=== PATIENT | male | born 1980 | race Caucasian/White ===

== ENCOUNTER 2016-04-12 21:02 | Emergency (ER) | payer MEDICAID ==
[~2016-04-12] VITALS: Ht 165.1 cm; Wt 65.5 kg
[~2016-04-12 21:02] MED LIST: FAMO20TA18 PO; HYDR-762 PO; IBUP-1542 PO; LORA-401 PO; SUCR1ORA PO
[2016-04-12 21:05] VITALS: Ht 165.1 cm; Wt 65.5 kg
[2016-04-12] MEDS ORDERED: BACTDS PO (23:21)
[2016-04-12] MEDS ORDERED: CEPH-443 PO (23:22)
[2016-04-12] MEDS ORDERED: IBUP-1542 PO (23:22)
--- NOTE | 2016-04-13 01:55 | ERD ---
ER Documentation Chief Complaint Date/Time DATE: 04/13/16 TIME: 01:46 Chief Complaint R leg pain/swelling after trimming his toe nails yesterday HPI This is a 35-year-old male presents to the ER with right big toe pain that radiates up to his [place] and thigh. Patient states that his nail was ingrown in that he cut it yesterday, he states he still has pain in his nail. She denies any fevers or chills. Denies any leg pain or swelling. He denies any chest pain or shortness of breath. Has not trying to soak his foot in warm water however it has not worked. ROS 12 point review of systems was done, all negative except per HPI.. Medications Home Meds Active Scripts Ibuprofen* (Motrin*) 600 Mg Tab, 600 MG PO Q6, #30 TAB Prov:CLIVE GARAY 04/12/16 Cephalexin* (Keflex*) 500 Mg Capsule, 500 MG PO QID for 5 Days, CAP Prov:CLIVE GARAY 04/12/16 Sulfamethoxazole-Trimethoprim* (Bactrim* DS) 800-160 Mg Tab, 1 TAB PO BID for 5 Days, TAB Prov:CLIVE GARAY 04/12/16 Ibuprofen* (Motrin*) 600 Mg Tab, 600 MG PO Q6, #30 TAB Prov:AWILDA PRINCE PA-C 08/22/15 Reported Medications Hydrocodone Bit-Acetaminophen* ([place]*) 1 Tab Tablet, 1 TAB PO Q6 PRN 03/28/12 Famotidine* (Famotidine*) 20 Mg Tablet, 20 MG PO DAILY 03/28/12 Lorazepam* (Ativan*) 1 Mg Tablet, 1 MG PO TID PRN 03/28/12 Sucralfate* (Carafate*) 1 G/10 Ml Oral.susp, 10 ML PO QID 03/28/12 Allergies Allergies: Coded Allergies: No Known Allergy (Unverified , 08/22/15) PMhx/Soc History of Surgery: No Anesthesia Reaction: No Hx Neurological Disorder: No Hx Respiratory Disorders: No Hx Cardiac Disorders: Yes (HTN) Hx Psychiatric Problems: No Hx Miscellaneous Medical Probl: No Hx Alcohol Use: No Hx Substance Use: No Hx Tobacco Use: No Physical Exam Vitals Vital Signs Date Time Temp Pulse Resp B/P Pulse Ox O2 Delivery O2 Flow Rate FiO2 04/12/16 21:05 98.6 85 18 129/81 99 Physical Exam Const: [] Head: Atraumatic Eyes: Normal Conjunctiva Resp: Clear to auscultation bilaterally Cardio: Regular rate and rhythm, no murmurs Abd: Soft, non tender, non distended. Normal bowel sounds Ext: right big toe slight swelling and redness. no calf swelling or redness. Neur: Awake and alert Psych: Normal Mood and Affect Procedures/MDM This is a 35 y/o male that presents to the ER with right big toe pain after attempting to cut his ingrown toenail. Patient does appear to have a slight infection of the site. He will be sent home with Keflex and with Bactrim. He was advised to soak his foot in epson salt and warm water. Patient needs to f/u with his PCP within 1-2 days and see a automatic brine mixer operator for possible toenail removal. Patient needs to return to ER if symptoms worsen. Plan was discussed with the patient, he understands and agrees with the plan. Departure Diagnosis: Primary Impression: Ingrown toenail Condition: Stable Patient Instructions: Understanding Ingrown Toenails, Ingrown Toenail, Infected (Abx Only) Additional Instructions: Llame al doctor NAREN y mukul max HAO PARA DENTRO DE 1-2 RITCHIE.Dgale a la secretaria que nosotros le instruimos hacer esta hao.Avise o llame si lagunas condicin se empeora antes de la hao. Regresa aqui si peor o no mejor. CLIVE GARAY Apr 13, 2016 01:55
== END 2016-04-13 00:15 | disposition home or self-care (01) ==
LOC: FTE 21:02
DX: L60.0 Ingrowing nail (principal); I10 Essential (primary) hypertension
CPT/HCPCS: 99284

== ENCOUNTER 2016-04-20 15:40 | Emergency (ER) | payer MEDICAID ==
[~2016-04-20] VITALS: Ht 170.2 cm; Wt 75.0 kg
[~2016-04-20 15:40] MED LIST changes: +BACTDS PO; +CEPH-443 PO
[2016-04-20 15:44] VITALS: Ht 170.2 cm; Wt 75.0 kg
--- NOTE | 2016-04-20 21:16 | RADRPT ---
PROCEDURE: CT Head without contrast. CLINICAL INDICATION: Numbness and JOSE in the right upper and lower extremity. Headaches. TECHNIQUE: The study was performed utilizing a GE 64-slice multidetector CT scanner. Direct spiral axial CT images of the brain were obtained from the vertex to the skull base without contrast. The CTDI vol is 43.38 80 mGy and the DLP is 720.23 mGy-cm. The images were reviewed on a PACS workstati on. COMPARISON: No prior studies are available for comparison. FINDINGS: The ventricles and cortical sulci are within normal limits. The hickman-white matter differentiation i s maintained. No intra or extra-axial fluid collection or mass effect or shift in the midline struc tures is seen. The visualized paranasal sinuses, mastoid air cells, orbits, and calvarium are unrem arkable. IMPRESSION: Unremarkable CT of the head without contrast. RPTAT: HPNM Physician Nicole Date Time Electronically viewed and signed by Physician Nicole on 04/20/2016 21:16 /
[2016-04-20 22:26] LABS: ALBUMIN 4.3 g/dl (3.3-4.9); BASOPHILS % 0.4 % (0.0-2.0); EOSINOPHILS # 0.1 10^3/ul (0.0-0.5); HEMATOCRIT 44.6 % (42.0-52.0); HEMOGLOBIN 15.3 g/dl (14.0-18.0); LYMPHOCYTES # 3.2 10^3/ul (0.8-2.9); LYMPHOCYTES % 40.7 % (15.0-51.0); MEAN CORPUSCULAR HEMOGLOBIN 31.1 pg (29.0-33.0); MEAN CORPUSCULAR HGB CONC 34.3 g/dl (32.0-37.0); MEAN CORPUSCULAR VOLUME 90.5 fl (82.0-101.0); MEAN PLATELET VOLUME 8.8 fl (7.4-10.4); MONOCYTE # 0.5 10^3/ul (0.3-0.9); NEUTROPHIL # 4.1 10^3/ul (1.6-7.5); NEUTROPHILS % 51.9 % (39.0-77.0); PLATELET COUNT 266 10^3/UL (140-440); RED BLOOD COUNT 4.92 10^6/ul (4.70-6.10); RED CELL DISTRIBUTION WIDTH 13.2 % (11.5-14.5); UNCORRECTED WBC 7.9 10^3/ul (4.8-10.8); WHITE BLOOD COUNT 7.9 10^3/ul (4.8-10.8)
[2016-04-20 22:27] LABS: CHLORIDE 102 mmol/L (97-110); SODIUM 143 mmol/L (135-144)
[2016-04-20 22:28] LABS: CONDITION 1
[2016-04-20 22:29] LABS: ALBUMIN/GLOBULIN RATIO 1.16; ALKALINE PHOSPHATASE 75 IU/L (42-121); ANION GAP 18 (8-16); ASPARTATE AMINO TRANSFERASE 25 IU/L (15-46); BLOOD UREA NITROGEN 22 mg/dl (7-20); CARBON DIOXIDE 27 mmol/L (21-31); CREATININE 1.03 mg/dl (0.61-1.24)
[2016-04-20 22:30] LABS: ALANINE AMINOTRANSFERASE 35 IU/L (13-69); CALCIUM 9.2 mg/dl (8.4-10.2); GLUCOSE 119 mg/dl (70-220)
[2016-04-20 22:46] LABS: TROPONIN-I < 0.012 ng/ml (0.00-0.12)
[2016-04-20 23:34] LABS: ADD UMIC NO; URINE BILIRUBIN (Dip) NEGATIVE (NEGATIVE); URINE BLOOD (Dip) NEGATIVE (NEGATIVE); URINE COLOR LT. YELLOW (YELLOW); URINE GLUCOSE (Dip) NEGATIVE (NEGATIVE); URINE KETONES (Dip) TRACE (NEGATIVE); URINE LEUKOCYTE ESTERASE (Dip) NEGATIVE (NEGATIVE); URINE NITRITE (Dip) NEGATIVE (NEGATIVE); URINE TOTAL PROTEIN (Dip) NEGATIVE (NEGATIVE); URINE UROBILINOGEN (Dip) 0.2 E.U./dL (0.1-1.0)
[2016-04-21 00:02] LABS: BARBITURATES Negative (NEGATIVE); BENZODIAZEPINES Negative (NEGATIVE); CANNABINOIDS Negative (NEGATIVE); COCAINE Negative (NEGATIVE); OPIATES Negative (NEGATIVE)
[2016-04-21] MEDS ORDERED: LORA1TAB PO (00:03)
--- NOTE | 2016-04-21 00:09 | ERD ---
ER Documentation Chief Complaint Date/Time DATE: 04/21/16 TIME: 00:06 Chief Complaint NUMBNESS/PA RT HAND SINCE LAST NIGHT. 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 States that he feels like his right arm and right leg are sleeping. Reports that he has a achy type of headache on the top of his head and rates it a 5 out of 10. States that he was here 1 week ago and was diagnosed with an ingrown toenail and finishes antibiotics. States that earlier today he felt like he was unable to open his hands for 2-3 minutes. States that his right hand was in a crypt position. Denies any chest pain, shortness of breath, abdominal pain, nausea, vomiting, dizziness, weakness, fever. Denies any recent traveling. Denies any leg swelling. Denies any family history of stroke. ROS All systems reviewed and are negative except as per history of present illness. Medications Home Meds Active Scripts Lorazepam* (Lorazepam*) 1 Mg Tablet, 1 MG PO Q8H Y for ANXIETY, #10 TAB Prov:DELTA TALBOT PA-C 04/21/16 Ibuprofen* (Motrin*) 600 Mg Tab, 600 MG PO Q6, #30 TAB Prov:CLIVE GARAY 04/12/16 Cephalexin* (Keflex*) 500 Mg Capsule, 500 MG PO QID for 5 Days, CAP Prov:CLIVE GARAY 04/12/16 Sulfamethoxazole-Trimethoprim* (Bactrim* DS) 800-160 Mg Tab, 1 TAB PO BID for 5 Days, TAB Prov:CLIVE GARAY 04/12/16 Ibuprofen* (Motrin*) 600 Mg Tab, 600 MG PO Q6, #30 TAB Prov:AWILDA PRINCE PA-C 08/22/15 Reported Medications Hydrocodone Bit-Acetaminophen* ([place]*) 1 Tab Tablet, 1 TAB PO Q6 PRN 03/28/12 Famotidine* (Famotidine*) 20 Mg Tablet, 20 MG PO DAILY 03/28/12 Lorazepam* (Ativan*) 1 Mg Tablet, 1 MG PO TID PRN 03/28/12 Sucralfate* (Carafate*) 1 G/10 Ml Oral.susp, 10 ML PO QID 03/28/12 Allergies Allergies: Coded Allergies: No Known Allergy (Unverified , 08/22/15) PMhx/Soc History of Surgery: No Anesthesia Reaction: No Hx Neurological Disorder: No Hx Respiratory Disorders: No Hx Cardiac Disorders: Yes (HTN) Hx Psychiatric Problems: No Hx Miscellaneous Medical Probl: Yes (GERD,Eczema) Hx Alcohol Use: No Hx Substance Use: No Hx Tobacco Use: No Physical Exam Vitals Vital Signs Date Time Temp Pulse Resp B/P Pulse Ox O2 Delivery O2 Flow Rate FiO2 04/20/16 15:44 97.5 72 18 124/76 97 Physical Exam Const: [id number], well-nourished. In no acute distress. Head: Atraumatic, normocephalic Eyes: Normal Conjunctiva without injection. No purulent discharge. PERRLA. EOMI ENT: Normal external ear. Ear canal without erythema. Tympanic membrane pearly hickman without effusion or bulging. Nasal canal clear with normal turbinates. Moist oropharynx without tonsillar exudates. Non-erythematous pharynx. Uvula midline. No drooling. No trismus. Neck: No cervical midline tenderness. Full range of motion. No meningismus. No cervical lymphadenopathy. No JVD. Resp: Clear to auscultation bilaterally. No wheezing, rhonchi, rales, or crackles. No accessory muscle use. No retractions. Cardio: Regular rate and rhythm. No murmurs, rubs or gallops. Abd: Soft, non tender, non distended. Normal bowel sounds. No palpable masses. No rebound tenderness. No guarding. Negative McBurney's Point. Negative Townsend's Sign. Skin: Normal skin turgor. No petechiae or rashes Back: No midline tenderness. No CVA tenderness. Ext: No cyanosis, or edema. Distal pulses intact bilaterally. Neur: Awake and alert. Normal gait. Normal coordination. Cranial Nerves II- VII intact. Normal finger to nose. Muscle strength 5/5. Sensation intact. Psych: Normal Mood and Affect Result Diagram: 04/20/16211804/20/162118 Results 24 hrs Laboratory Tests Test 04/20/16 21:19 04/20/16 22:26 Alanine Aminotransferase (ALT/SGPT) 35IU/L Albumin 4.3g/dl Albumin/Globulin Ratio 1.16 Alkaline Phosphatase 75IU/L Anion Gap 18 Aspartate Amino Transf (AST/SGOT) 25IU/L Basophils # 0.010^3/ul Basophils % 0.4% Blood Urea Nitrogen 22mg/dl Calcium Level 9.2mg/dl Carbon Dioxide Level 27mmol/L Chloride Level 102mmol/L Creatinine 1.03mg/dl Direct Bilirubin 0.00mg/dl Eosinophils # 0.110^3/ul Eosinophils % 1.0% Globulin 3.70g/dl Glucose Level 119mg/dl Hematocrit 44.6% Hemoglobin 15.3g/dl Indirect Bilirubin 0.0mg/dl Lipase 77U/L Lymphocytes # 3.210^3/ul Lymphocytes % 40.7% Mean Corpuscular Hemoglobin 31.1pg Mean Corpuscular Hemoglobin Concent 34.3g/dl Mean Corpuscular Volume 90.5fl Mean Platelet Volume 8.8fl Monocytes # 0.510^3/ul Monocytes % 6.0% Neutrophils # 4.110^3/ul Neutrophils % 51.9% Nucleated Red Blood Cells # 0.010^3/ul Nucleated Red Blood Cells % 0.0/100WBC Platelet Count 81211^3/UL Potassium Level 4.0mmol/L Red Blood Count 4.9210^6/ul Red Cell Distribution Width 13.2% Sodium Level 143mmol/L Total Bilirubin 0.0mg/dl Total Protein 8.0g/dl Troponin I < 0.012ng/ml White Blood Count 7.910^3/ul Urine Amphetamines Screen Negative Urine Barbiturates Negative Urine Benzodiazepines Screen Negative Urine Bilirubin NEGATIVE Urine Cannabinoids Negative Urine Clarity CLEAR Urine Cocaine Screen Negative Urine Color LT. YELLOW Urine Glucose NEGATIVE% Urine Hemoglobin NEGATIVE Urine Ketones TRACE Urine Leukocyte Esterase NEGATIVE Urine Nitrite NEGATIVE Urine Opiates Screen Negative Urine Specific [place] 1.025 Urine Total Protein NEGATIVE Urine Urobilinogen 0.2 E.U./dL Urine pH 6.0 Current Medications Medications (Trade) Dose Ordered Sig/Katherine Route PRN Reason Start Time Stop Time Status Last Admin Dose Admin Lorazepam (Ativan) 1 mg ONCE ONCE IV 04/21/16 00:30 04/21/16 00:31 Procedures/[facility] This is a 35-year-old male with a past medical history of diabetes and hypertension presents the ED complaining of right upper and lower extremity numbness and tingling associated with a headache. Patient is afebrile and nontoxic-appearing. Patient has normal vital signs. A CT of the brain without contrast, EKG, CBC, CMP, urinalysis, urine drug screen was ordered to further evaluate patient. CBC: No leukocytosis. No e/o of systemic infection. No e/o anemia. CMP: No e/o severe acidosis, alkalosis, renal failure, diabetic ketoacidosis, liver disease Lipase within normal limits. Urine: No leukocyte esterase, no nitrites, no hematuria. PROCEDURE: CT Head without contrast. CLINICAL INDICATION: Numbness and JOSE in the right upper and lower extremity. Headaches. TECHNIQUE: The study was performed utilizing a GE 64-slice multidetector CT scanner. Direct spiral axial CT images of the brain were obtained from the vertex to the skull base without contrast. The CTDI vol is 43.38 80 mGy and the DLP is 720.23 mGy-cm. The images were reviewed on a PACS workstation. COMPARISON: No prior studies are available for comparison. FINDINGS: The ventricles and cortical sulci are within normal limits. The hickman-white matter differentiation is maintained. No intra or extra-axial fluid collection or mass effect or shift in the midline structures is seen. The visualized paranasal sinuses, mastoid air cells, orbits, and calvarium are unremarkable. IMPRESSION: Unremarkable CT of the head without contrast. EKG reviewed and interpreted by Dr. Cantu Rate/Rhythm: [70 bpm, Normal Sinus Rhythm] No ectopy, no ST elevations, normal axis. QRS, ST, T-waves: [No changes consistent w/ acute ischemia] Impression: [No evidence of ischemia or arrhythmia] Low suspicion for acute myocardial infarction, pneumothorax, pneumonia, cardiac tamponade, pulmonary embolism, AAA, aortic dissection, Boerhaave's syndrome, cardiac dysrhythmias,meningitis, intracranial bleed, seizure, stroke, TIA or other emergent conditions. Patient symptoms are likely due to possible anxiety. Patient was treated here in the ED with Ativan with improvement of his symptoms. There is no facial droop noted. Patient is logically intact. Cranial nerves II to VII are intact. She is hemodynamically stable. There is low suspicion for meningitis, TIA, stroke, intracranial bleed, subarachnoid hemorrhage, seizures, subdural hematoma, epidural hematoma or other emergent conditions. Discharge medications: Ativan Follow up with primary care physician in 1-2 days. Instructed patient to return to the ED sooner for any worsening symptoms. Patient's questions were answered. Patient understood and agreed with discharge plan. Patient discharged stable. Departure Diagnosis: Primary Impression: Numbness and tingling Condition: Stable Patient Instructions: Numbness, Anxiety Reaction Referrals: [facility] YOU HAVE RECEIVED A MEDICAL SCREENING EXAM AND THE RESULTS INDICATE THAT YOU DO NOT HAVE A CONDITION THAT REQUIRES URGENT TREATMENT IN THE EMERGENCY DEPARTMENT. FURTHER EVALUATION AND TREATMENT OF YOUR CONDITION CAN WAIT UNTIL YOU ARE SEEN IN YOUR DOCTORS OFFICE WITHIN THE NEXT 1-2 DAYS. IT IS YOUR RESPONSIBILITY TO MAKE AN APPOINTMENT FOR FOLOW-UP CARE. IF YOU HAVE A PRIMARY DOCTOR --you should call your primary doctor and schedule an appointment IF YOU DO NOT HAVE A PRIMARY DOCTOR YOU CAN CALL OUR PHYSICIAN REFERRAL HOTLINE AT IF YOU CAN NOT AFFORD TO SEE A PHYSICIAN YOU CAN CHOSE FROM THE FOLLOWING [facility] [address] [facility] [address] Search [facility]. [facility] [address] [facility] [address] [facility] [address] [facility]. [facility]. [address] [facility]. [facility] YOU HAVE RECEIVED A MEDICAL SCREENING EXAM AND THE RESULTS INDICATE THAT YOU DO NOT HAVE A CONDITION THAT REQUIRES URGENT TREATMENT IN THE EMERGENCY DEPARTMENT. FURTHER EVALUATION AND TREATMENT OF YOUR CONDITION CAN WAIT UNTIL YOU ARE SEEN IN YOUR DOCTORS OFFICE WITHIN THE NEXT 1-2 DAYS. IT IS YOUR RESPONSIBILITY TO MAKE AN APPOINTMENT FOR FOLOW-UP CARE. IF YOU HAVE A PRIMARY DOCTOR --you should call your primary doctor and schedule and appointment IF YOU DO NOT HAVE A PRIMARY DOCTOR YOU CAN CALL OUR PHYSICIAN REFERRAL HOTLINE AT . IF YOU CAN NOT AFFORD TO SEE A PHYSICIAN YOU CAN CHOSE FROM THE FOLLOWING [facility]: [address] [place] [address] [facility] [address] [place] [address] [facility] [address] [place] [address] [facility] Additional Instructions: FOLLOW UP WITH YOUR PRIMARY CARE PHYSICIAN TOMORROW. Return to this facility if you are not improving as expected. DELTA TALBOT PA-C Apr 21, 2016 00:09
[2016-04-21 00:11] VITALS: BP 122/78; PULSE 71; RESP 18; TEMP 98.2
[2016-04-21] MEDS ORDERED: LORAZEPAM 2 MG INJ IV ONE (00:30)
== END 2016-04-21 00:45 | disposition home or self-care (01) ==
LOC: FTE 15:40
DX: R20.0 Anesthesia of skin (principal); R20.2 Paresthesia of skin; I10 Essential (primary) hypertension; E11.9 Type 2 diabetes mellitus without complications
CPT/HCPCS: 70450; 80053; 80307; 81003; 83690; 84484; 85025; 93005; 96374; J2060; Z7502